=== PATIENT | male | born 1955 | race Caucasian/White ===

== ENCOUNTER → 2017-06-11 | Outpatient (CLI) | payer OTHER ==
[~2017-06-11] MED LIST: ALPR1 PO; ASPI81CH PO; CIPR500 PO; CODBUTASA PO; Coumadin5 MG PO; FISH1000 PO; HYDR-86; LISI20 PO; Lovenox120 MG/0.8 SC; MULVIT PO; NIAC500 PO; RXPHEN200 PO; SERT100 PO; Simvastatin10 MG PO; XARELTO10 MG; Zofran Odt4 MG SL
== END ==
LOC: LAB SHORT 12:08 → PLD 12:08
DX: D22.5 Melanocytic nevi of trunk (principal)
CPT/HCPCS: 88305

== ENCOUNTER 2018-05-28 06:21 | Emergency (ER) | payer OTHER ==
[~2018-05-28] VITALS: Ht 190.5 cm; Wt 111.1 kg
[2018-05-28] MEDS ORDERED: PRED10 PO (09:31)
[2018-05-28] MEDS ORDERED: Pepcid40 MG PO (09:31)
[2018-05-28] MEDS ORDERED: EPIPEN 2-P0.3 MG/0.3 IM (09:31)
== END 2018-05-28 09:46 | disposition home or self-care (01) ==
LOC: ER 06:21
DX: T78.3XXA Angioneurotic edema, initial encounter (principal); I10 Essential (primary) hypertension; F41.9 Anxiety disorder, unspecified; F17.210 Nicotine dependence, cigarettes, uncomplicated; Z79.82 Long term (current) use of aspirin; Z79.01 Long term (current) use of anticoagulants; Z86.718 Personal history of other venous thrombosis and embolism
CPT/HCPCS: 96374; 96375; 99283-25; J1200; J2930

== ENCOUNTER 2020-04-30 09:47 | Day surgery (SDC) | payer BC, OTHER ==
[~2020-04-30] VITALS: Ht 190.5 cm; Wt 112.7 kg
[~2020-04-30 09:47] MED LIST changes: +EPIPEN 2-P0.3 MG/0.3 IM; +PRED10 PO; +Pepcid40 MG PO
== END 2020-04-30 11:53 | disposition home or self-care (01) ==
LOC: ORSCSDS 09:47
PROVIDERS: Surgery
PROC: 0DBN8ZX Excision of Sigmoid Colon, Via Natural or Artificial Opening Endoscopic, Diagnostic (ICD-10-PCS; principal; 2020-04-30 11:00)
PROC: 0DBH8ZX Excision of Cecum, Via Natural or Artificial Opening Endoscopic, Diagnostic (ICD-10-PCS; principal; 2020-04-30 11:00)
DX: Z12.11 Encounter for screening for malignant neoplasm of colon (principal); D12.0 Benign neoplasm of cecum; D12.5 Benign neoplasm of sigmoid colon; G47.30 Sleep apnea, unspecified; I10 Essential (primary) hypertension; E78.5 Hyperlipidemia, unspecified; Z79.899 Other long term (current) drug therapy
CPT/HCPCS: 88305; J2704; J7120

== ENCOUNTER 2024-02-12 11:10 | Inpatient (IN) | payer MEDICARE ==
[~2024-02-12] VITALS: Ht 190.5 cm; Wt 119.3 kg
[2024-02-12] MEDS ORDERED: Acetaminophen 500 MG Tab PO PRN (17:45)
[2024-02-12] MEDS ORDERED: Ondansetron 4 MG TAB PO PRN (17:45)
[2024-02-12] MEDS ORDERED: FLU VACC TS2024-25(6MOS UP)/PF 45 MCG/0.5 ML SYRINGE IM SCH (17:45)
[2024-02-12] MEDS ORDERED: OxyCODONE HCL 5 MG TAB PO PRN (17:45)
[2024-02-12 20:44] VITALS: BP 151/92
--- NOTE | 2024-02-12 20:45 | NUR ---
ARRIVAL TO UNIT PT ARRIVED TO UNIT FROM ED. A&O x4. L ANKLE IN SPLINT, NWB. PT REPORTS PAIN TOLERABLE. S/O @ BEDSIDE. NO NEEDS STATED. ORIENTED TO UNIT, CALL LIGHT IN REACH, BED IN LOWEST POSITION.
[2024-02-12] MEDS ORDERED: TRAZ100 PO (20:51)
[2024-02-12] MEDS ORDERED: Celexa20 MG PO (20:53)
[2024-02-12] MEDS ORDERED: ALPR1 PO (20:54)
[2024-02-12] MEDS ORDERED: Doxycycline Mo100 M1 PO (20:59)
[2024-02-12] MEDS ORDERED: TraZODone HCl 50 MG Tab PO PRN (22:20)
[2024-02-12] MEDS ORDERED: Doxycycline Hyclate 100 MG TAB PO ONE (22:20)
[2024-02-12] MEDS ORDERED: Melatonin 5 MG Tablet PO PRN (22:20)
[2024-02-12] MEDS ORDERED: ALPRAZolam 1 MG Tab PO PRN (22:20)
[2024-02-13] VITALS (14 sets, daily range): BP systolic 92–134; BP diastolic 61–91
--- NOTE | 2024-02-13 04:30 | NUR ---
SHIFT SUMMARY S/P L ANKLE FX. NO ACUTE CHANGES OVERNIGHT. VSS. NPO SINCE MIDNIGHT IN ANTICIPATION OF SURG LATER TODAY. LLE IN SPLINT; NWB, ELEVATED ON PILLOWS. VOIDING. PT REPORTS PAIN TOLERABLE, MEDICATED PER EMAR. CALL LIGHT IN REACH, BED IN LOWEST POSITION, WILL REPORT TO DAY RN.
[2024-02-13 05:16] LABS: BASOPHILS ABSOLUTE AUTO 0.06 K/mm3 (0.00-0.23); BASOPHILS PERCENT AUTO 1 % (0-2); EOSINOPHILS ABSOLUTE AUTO 0.47 K/mm3 (0.00-0.68); EOSINOPHILS PERCENT AUTO 6 % (0-6); Hematocrit 42.4 % (37.0-53.0); Hemoglobin 14.5 g/dL (13.5-17.5); IMMATURE GRAN ABSOLUTE AUTO 0.01 K/mm3 (0.00-0.10); IMMATURE GRAN PERCENT AUTO 0 % (0-1); LYMPHOCYTES PERCENT AUTO 29 % (21-46); MONOCYTES ABSOLUTE AUTO 0.97 K/mm3 (0.16-1.47); MONOCYTES PERCENT AUTO 12 % (4-13); Mean Corpuscular HGB 31.2 pg (26.0-34.0); Mean Corpuscular HGB Conc 34.2 g/dL (31.5-36.5); Mean Corpuscular Volume 91 fL (80-100); NEUTROPHILS ABSOLUTE AUTO 4.14 K/mm3 (1.96-9.15); NEUTROPHILS PERCENT AUTO 52 % (41-73); Platelet Count 217 K/mm3 (150-400); RDW Coefficient Variation 13.3 % (11.7-14.2); RDW Standard Deviation 44.6 fL (35.1-46.3); Red Blood Cell Count 4.65 M/mm3 (4.30-5.90); White Blood Cell Count 7.95 K/mm3 (4.00-11.30)
[2024-02-13 05:40] LABS: Calcium, Blood 8.6 mg/dL (8.5-10.1); Potassium, Blood 3.9 mmol/L (3.5-5.5)
[2024-02-13] MEDS ORDERED: Enoxaparin 40 MG/0.4 ML SYR SC SCH (09:00)
[2024-02-13] MEDS ORDERED: Citalopram Hydrobromide 20 MG Tab PO SCH (09:00)
[2024-02-13] MEDS ORDERED: Tranexamic Acid 1,000 MG in NS 100 ML IV SCH (11:30)
[2024-02-13] MEDS ORDERED: CeFAZolin Sodium 2,000 MG in NS 100 ML IV SCH (11:30)
[2024-02-13] MEDS ORDERED: Lactated Ringer's 1,000 ML IV SCH (11:30)
--- NOTE | 2024-02-13 11:46 | NUR ---
PT TO OR AT 1136
[2024-02-13] MEDS ORDERED: Midazolam HCl 1MG / ML 2ML Vial ONE (13:04)
[2024-02-13] MEDS ORDERED: Bupivacaine 0.5% HCl 5 MG/ML 30MLVIAL ONE (13:08)
[2024-02-13] MEDS ORDERED: propofoL 20 ML IV ONE (13:47)
[2024-02-13] MEDS ORDERED: FentaNYL Citrate 50 MCG/ML 2 ML Injection ONE (13:51)
[2024-02-13] MEDS ORDERED: Ketorolac Tromethamine 30mg Vial ONE (14:43)
[2024-02-13] MEDS ORDERED: Ondansetron HCl 2 MG / ML 2ML Vial ONE (14:44)
[2024-02-13] MEDS ORDERED: Phenylephrine HCl 100 MCG/ML-NS 10MLSYR (1MG/10ML) ONE (14:44)
[2024-02-13] MEDS ORDERED: Dexamethasone Sod Phos 10 MG/ML 1ML VIAL ONE (14:44)
--- NOTE | 2024-02-13 17:39 | NUR ---
POST OP: REPORT RECEIVED FROM [employer]. PT TO UNIT AT ABOUT 1545, PT IS A/O, VSS. PT RECEIVED NERVE BLOCK, DENIES PAIN. ABLE TO WIGGLE TOES, CAP REFILL WNL. SURGICAL DRESSING IS WNL AND L ANKLE ELEVATED ON PILLOWS. PT INSTRUCTED TO CALL STAFF FOR 1ST TIME OOB. CALL LIGHT IN REACH
--- NOTE | 2024-02-13 19:03 | NUR ---
SUMMARY: NO ACUTE CHANGE SINCE POST OP. PT ABLE TO STAND WITH FWW AND AMBULATE TO BATHROOM, PAIN APPEARS TO BE MANAGED. PT VOIDING, EATING. NO ACUTE CONCERNS.
--- NOTE | 2024-02-14 04:29 | NUR ---
SHIFT SUMMARY KIKA WAS ALERT AND FULLY ORIENTED ON ASSESMENT. NO COMPLAINTS OF PAIN TONIGHT, LOCAL BLOCK STILL IN EFFECT. VSS, PT STATES THAT HE FEELS GOOD BUT HAS LITTLE TO NO SENSATION TO LEFT FOOT. PT VOIDING APPROPRIATELY, ABLE TO STAND/PIV ON GOOD LEG WITH 1P ASSIST. NO ACUTE EVENTS TONIGHT. ANTICIPATE DISCHARGE IN AM.
[2024-02-14 04:51] VITALS: BP 110/76
[2024-02-14] MEDS ORDERED: ACET500 PO (07:26)
[2024-02-14] MEDS ORDERED: OXAYDO5 M1 PO (07:27)
[2024-02-14 07:29] VITALS: BP 110/70
--- NOTE | 2024-02-14 09:40 | NUR ---
discharged dc instructions reviewed w/pt by holland garsia. pt left unit using scooter, accompanied by spouse w/dc instructions and personal belongings in hand.
== END 2024-02-14 09:40 | disposition home or self-care (01) | DRG 494 ==
LOC: ER 11:10 → SURS 17:41 → ERHOLD 17:41 → SURS 20:15
PROVIDERS: Orthopaedic Surgery Sports Medicine; ADMIT Family Medicine
PROC: 0QSK04Z Reposition Left Fibula with Internal Fixation Device, Open Approach (ICD-10-PCS; principal; 2024-02-13 14:30)
DX: S82.842A Displaced bimalleolar fracture of left lower leg, initial encounter for closed fracture (principal); W17.89XA Other fall from one level to another, initial encounter; I10 Essential (primary) hypertension; F17.290 Nicotine dependence, other tobacco product, uncomplicated; F41.9 Anxiety disorder, unspecified; Z88.8 Allergy status to other drugs, medicaments and biological substances; Z86.718 Personal history of other venous thrombosis and embolism
CPT/HCPCS: 29515; 36415; 73610; 80048; 85025; 99284-25; A9270; C1713; J0690; J1100; J1885; J2250; J2371; J2405; J2704; J3010; J7120

== ENCOUNTER 2024-04-10 07:43 | Emergency (ER) | payer OTHER ==
[~2024-04-10] VITALS: Ht 190.5 cm; Wt 117.9 kg
[~2024-04-10 07:43] MED LIST changes: +ACET500 PO; +Celexa20 MG PO; +Doxycycline Mo100 M1 PO; +OXAYDO5 M1 PO; +TRAZ100 PO
[2024-04-10 08:54] LABS: BASOPHILS ABSOLUTE AUTO 0.05 K/mm3 (0.00-0.23); BASOPHILS PERCENT AUTO 1 % (0-2); EOSINOPHILS ABSOLUTE AUTO 0.28 K/mm3 (0.00-0.68); EOSINOPHILS PERCENT AUTO 4 % (0-6); Hematocrit 35.3 % (37.0-53.0); Hemoglobin 11.9 g/dL (13.5-17.5); IMMATURE GRAN ABSOLUTE AUTO 0.03 K/mm3 (0.00-0.10); IMMATURE GRAN PERCENT AUTO 0 % (0-1); LYMPHOCYTES ABSOLUTE AUTO 1.21 K/mm3 (0.84-5.20); LYMPHOCYTES PERCENT AUTO 16 % (21-46); MONOCYTES ABSOLUTE AUTO 0.83 K/mm3 (0.16-1.47); MONOCYTES PERCENT AUTO 11 % (4-13); Mean Corpuscular HGB Conc 33.7 g/dL (31.5-36.5); Mean Corpuscular Volume 86 fL (80-100); NEUTROPHILS PERCENT AUTO 69 % (41-73); Platelet Count 418 K/mm3 (150-400); RDW Coefficient Variation 13.1 % (11.7-14.2); RDW Standard Deviation 40.5 fL (35.1-46.3)
[2024-04-10 09:22] LABS: Albumin, Blood 2.7 g/dL (3.4-5.0); Albumin/Globulin Ratio 0.7 (0.8-1.8); Bilirubin, Total 0.4 mg/dL (0.1-1.0); Bun/Creatinine Ratio 10.5 (12.0-20.0); Calcium, Blood 8.4 mg/dL (8.5-10.1); Creatinine, Blood 0.86 mg/dL (0.60-1.20); Globulin, Blood 4.1 g/dL (2.2-4.0); Potassium, Blood 3.7 mmol/L (3.5-5.5); Total Protein, Blood 6.8 g/dL (6.4-8.2)
[2024-04-10] MEDS ORDERED: NS 1,000 ML IV SCH (09:40)
[2024-04-10 11:23] VITALS: BP 112/81
[2024-04-10] MEDS ORDERED: AMOCLA875 PO (11:36)
== END 2024-04-10 11:57 | disposition home or self-care (01) ==
LOC: ER 07:43
PROVIDERS: Physician Assistant
DX: K52.9 Noninfective gastroenteritis and colitis, unspecified (principal); I10 Essential (primary) hypertension; Z88.8 Allergy status to other drugs, medicaments and biological substances; Z79.899 Other long term (current) drug therapy; Z79.2 Long term (current) use of antibiotics; Z79.1 Long term (current) use of non-steroidal anti-inflammatories (NSAID); Z79.891 Long term (current) use of opiate analgesic; F17.290 Nicotine dependence, other tobacco product, uncomplicated
CPT/HCPCS: 74177; 80053; 83690; 85025; 96360-59; 96361; 99284-25; J7030; Q9967